=== PATIENT | female | born 1990 | race Caucasian/White ===

== ENCOUNTER 2021-12-31 07:44 | Emergency (ER) | payer OTHER ==
[2021-12-31 07:55] VITALS: BP 112/65; PULSE 67; TEMP 97.7; BMI 21.1
[2021-12-31 09:05] LABS: EPI CELLS >36 /uL (0-25.1); HCG,QUALITATIVE URINE Negative; HYALINE CASTS 6 /uL (0-3.1); URINE APPEARANCE CLEAR; URINE BACTERIA 559 /uL (0-1359); URINE BILIRUBIN NEGATIVE (NEGATIVE); URINE COLOR YELLOW; URINE GLUCOSE (UA) NEGATIVE (NEGATIVE); URINE KETONE NEGATIVE (NEGATIVE); URINE LEUK ESTERASE NEGATIVE (NEGATIVE); URINE NITRITE NEGATIVE (NEGATIVE); URINE PROTEIN NEGATIVE (NEGATIVE); URINE RBC 31 /uL (0-23.9); URINE UROBILINOGEN 0.2 mg/dL (0.2-1.0); URINE WBC 53 /uL (0-25.8)
== END 2021-12-31 09:45 | disposition home or self-care (01) ==
LOC: JER 07:44
DX: N30.01 Acute cystitis with hematuria (principal)
CPT/HCPCS: 81003; 84703; 87086; 99283-25

== ENCOUNTER 2022-07-18 00:03 | Emergency (ER) | payer OTHER ==
[2022-07-18 00:08] VITALS: BP 111/70; PULSE 76; RESP 16; TEMP 98; BMI 21.6
[2022-07-18] MEDS ORDERED: ACETAMINOPHEN 325 MG TABLET (FP) PO ONE (01:35)
[2022-07-18] MEDS ORDERED: ACETAMINOPHEN 325 MG TABLET (FP) ONE (01:40)
== END 2022-07-18 01:37 | disposition home or self-care (01) ==
LOC: JER 00:03
DX: B97.4 Respiratory syncytial virus as the cause of diseases classified elsewhere (principal)
CPT/HCPCS: 0241U-QW; 87651; 99283-25